=== PATIENT | female | born 1950 | race Caucasian/White ===

== ENCOUNTER 2017-07-11 09:36 | Emergency (ER) | payer OTHER ==
[~2017-07-11] VITALS: Ht 170.2 cm; Wt 81.6 kg
[2017-07-11 10:38] VITALS: BP 104/47
[2017-07-11 11:04] LABS: RED CELL DISTRIBUTION WIDTH 17.7 % (11.5-14.5)
[2017-07-11 11:05] LABS: PLATELET COUNT 28 x10^3mcL (130-400)
[2017-07-11 11:41] LABS: BILIRUBIN TOTAL 1.15 mg/dL (0.20-1.00); CALCIUM 8.5 mg/dL (8.5-10.1); CARBON DIOXIDE 13.9 mmol/L (21-32); CREATININE SERUM 2.5 mg/dL (0.6-1.0); T4(THYROXINE) 6.2 ug/dL (4.7-13.3); TOTAL PROTEIN, SERUM 6.6 g/dL (6.4-8.2)
[2017-07-11 11:46] LABS: ALBUMIN 1.9 g/dL (3.4-5.0)
[2017-07-11 11:47] LABS: POTASSIUM SERUM 5.9 mmol/L (3.5-5.1)
[2017-07-11 14:19] LABS: BAND NEUTROPHIL 0 % (0-10); SEGMENTED NEUTROPHILS 16 % (37-75)
[2017-07-11 14:20] LABS: MONOCYTE 5 % (0-7); PLATELET MORPHOLOGY PLATELETS DECREASED; rbc morphology (normal/abnorm) ABNORMAL (NORMAL)
== END 2017-07-11 15:00 | disposition expired ==
LOC: ED 09:36
PROVIDERS: Emergency Medicine
DX: I46.9 Cardiac arrest, cause unspecified (principal); I26.99 Other pulmonary embolism without acute cor pulmonale; D72.819 Decreased white blood cell count, unspecified; Z86.718 Personal history of other venous thrombosis and embolism; Z88.8 Allergy status to other drugs, medicaments and biological substances
CPT/HCPCS: 83880; J2543; J7030